=== PATIENT | male | born 1955 | race Caucasian/White ===

== ENCOUNTER 2020-02-11 12:01 | Observation (INO) | payer MEDICARE, MEDICAID ==
[~2020-02-11] VITALS: Ht 180.3 cm; Wt 100.0 kg
--- NOTE | 2020-02-11 12:38 | NUR ---
PT VERONICA CHAVARRIA FROM HOME. PT STATES CARDIAC CATH YESTERDAY IN [place], PT STATES NO INTERVENTION NEEDED. PT STATES THIS AM, PT HAD A SUDDEN ONSET OF DIZZINESS AND G/O WEAKNESS. 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 PT PLACED ON MONITORS, EKG COMPLETED. AWAITING ERMD ASSESSMENT.
[2020-02-11] MEDS ORDERED: DEXTROSE 50%, 50ML SYRINGE ONE (13:31)
--- NOTE | 2020-02-11 13:38 | NUR ---
PT UP TO RR, STEADY GAIT. PT BACK TO BED, REMAINS ON MONITORS, VSS. NO DISTRESS, CONT TO MONITOR.
[2020-02-11 13:49] LABS: BASOPHILS % (AUTO) 1 % (0-1); EOSINOPHILS # (AUTO) 0.17 x10^3/uL (0-0.4); EOSINOPHILS % (AUTO) 2 % (1-7); LYMPHOCYTES # (AUTO) 2.38 x10^3/uL (1-3.4); LYMPHOCYTES % (AUTO) 27 % (22-44); MD NO; MEAN CORPUSCULAR HEMOGLOBIN 31.6 pg (27.5-34.5); MEAN CORPUSCULAR HGB CONC 33.6 g/dL (33.2-36.2); MEAN CORPUSCULAR VOLUME 93.9 fL (81-97); MEAN PLATELET VOLUME 8.8 fL (7.4-10.4); MONOCYTES # (AUTO) 0.67 x10^3/uL (0.2-0.8); MONOCYTES % (AUTO) 8 % (2-9); NEUTROPHILS # (AUTO) 5.57 x10^3/uL (1.8-6.8); NEUTROPHILS % (AUTO) 63 % (42-75); PLATELET COUNT 189 x10^3/uL (130-400); RED BLOOD COUNT 5.24 x10^6/uL (4.38-5.82); RED CELL DISTRIBUTION WIDTH 13.1 % (9.4-14.8)
[2020-02-11 13:59] LABS: ANION GAP 7 mmol/L (5-15); CALCIUM 9.6 mg/dL (8.5-10.1); CHLORIDE 104 mmol/L (98-107)
[2020-02-11 14:06] LABS: CREATININE 1.19 mg/dL (0.7-1.3); TROPONIN I 0.065 ng/mL (0.000-0.045)
--- NOTE | 2020-02-11 15:27 | NUR ---
PT AWARE OF POC, TO BE [facility] ADMIT. PT REMAINS ON MONITORS, VSS. CONT TO MONITOR.
[2020-02-11] MEDS ORDERED: LORazepam 2 MG/ML, 1ML ONE (16:04)
[2020-02-11] MEDS ORDERED: PREG100C PO (16:15)
[2020-02-11] MEDS ORDERED: TERA1CAP3 PO (16:15)
[2020-02-11] MEDS ORDERED: METF500T17 PO (16:16)
[2020-02-11] MEDS ORDERED: ASPI81TA45 PO (16:16)
[2020-02-11] MEDS ORDERED: CHLO25TA PO (16:17)
[2020-02-11] MEDS ORDERED: OMEP-110 PO (16:18)
[2020-02-11] MEDS ORDERED: LORazepam 2 MG/ML, 1ML IVPush ONE (16:30)
--- NOTE | 2020-02-11 16:40 | NUR ---
PT HAS BEEN INCREASING ANGRY WITH STAFF, STATING HE'S "SICK OF BEING HERE." PT EDUCATED ON PLAN OF CARE, REMAINS ANGRY WITH STAFF. PT GIVEN PILLOW PER REQUEST. BREAK RN RECEIVED ORDER FOR ATIVAN, AND PT MEDICATED PER ORDERS. WILL RECHECK. CONT TO MONITOR.
--- NOTE | 2020-02-11 17:13 | NUR ---
REPOT GIVEN TO ALBINA PENNY.
--- NOTE | 2020-02-11 17:40 | NUR ---
PT TRANSFERED TO 526, PT HAS ALL OWN BELONGINGS UPON TRANSFER.
[2020-02-11] MEDS ORDERED: POLYETHYLENE GLYCOL 17 GM PACKET PO PRN (18:00)
[2020-02-11] MEDS ORDERED: hydrALAzine 20 MG/ML, 1ML IVPush PRN (18:00)
[2020-02-11] MEDS ORDERED: BISACODYL 10 MG SUPP PR PRN (18:00)
[2020-02-11] MEDS ORDERED: DOCUSATE 100 MG CAPSULE PO PRN (18:00)
[2020-02-11] MEDS ORDERED: ACETAMINOPHEN 325 MG TABLET PO PRN (18:00)
[2020-02-11 18:02] VITALS: BP 156/90
[2020-02-11 18:08] LABS: FREE T4 (FREE THYROXINE) 1.23 ng/dL (0.76-1.46)
[2020-02-11 19:03] VITALS: BP 147/88
[2020-02-11 21:28] LABS: TROPONIN I 0.053 ng/mL (0.000-0.045)
[2020-02-11] MEDS ORDERED: DIPHENHYDRAMINE 25 MG CAPSULE PO PRN (21:30)
[2020-02-11] MEDS: HEPARIN 5,000 UNITS/ML, 1ML SQ SCH (21:51)
[2020-02-12 00:52] LABS: TROPONIN I 0.052 ng/mL (0.000-0.045)
[2020-02-12 01:35] VITALS: BP 136/87
[2020-02-12 05:41] LABS: CHLORIDE 107 mmol/L (98-107)
[2020-02-12 05:51] LABS: BASOPHILS # (AUTO) 0.05 x10^3/uL (0-0.1); BASOPHILS % (AUTO) 1 % (0-1); EOSINOPHILS # (AUTO) 0.24 x10^3/uL (0-0.4); EOSINOPHILS % (AUTO) 4 % (1-7); LYMPHOCYTES # (AUTO) 2.11 x10^3/uL (1-3.4); LYMPHOCYTES % (AUTO) 34 % (22-44); MEAN CORPUSCULAR HEMOGLOBIN 31.4 pg (27.5-34.5); MEAN CORPUSCULAR HGB CONC 33.1 g/dL (33.2-36.2); MEAN CORPUSCULAR VOLUME 95.1 fL (81-97); MEAN PLATELET VOLUME 8.7 fL (7.4-10.4); MONOCYTES % (AUTO) 10 % (2-9); NEUTROPHILS # (AUTO) 3.14 x10^3/uL (1.8-6.8); NEUTROPHILS % (AUTO) 51 % (42-75); PLATELET COUNT 171 x10^3/uL (130-400); RED CELL DISTRIBUTION WIDTH 13.3 % (9.4-14.8)
[2020-02-12 05:58] LABS: ALANINE AMINOTRANSFERASE 33 U/L (12-78); ALBUMIN 3.7 g/dL (3.4-5.0); ALKALINE PHOSPHATASE 85 U/L (45-117); BILIRUBIN,TOTAL 1.1 mg/dL (0.2-1.0); CALCIUM 9.3 mg/dL (8.5-10.1); CHOL/HDL RATIO 4.3; CHOLESTEROL, TOTAL 172 mg/dL (140-239); CREATININE 1.03 mg/dL (0.7-1.3); HDL CHOL % 23 % (26-37); HDL CHOLESTEROL (DIRECT) 40 mg/dL (40-60); LDL CHOLESTEROL,CALCULATED 97 mg/dL (54-169); LDL/HDL RATIO 2.4 (0.5-3.0); TOTAL PROTEIN 7.3 g/dL (6.4-8.2); TRIGLYCERIDES 176 mg/dL (50-200); VLDL CHOLESTEROL 35 mg/dL (0-25)
[2020-02-12] MEDS: HEPARIN 5,000 UNITS/ML, 1ML SQ SCH (06:12)
[2020-02-12 06:22] LABS: MD NO
[2020-02-12 06:47] LABS: ANION GAP 8 mmol/L (5-15)
[2020-02-12 07:10] VITALS: BP 146/94
== END 2020-02-12 09:14 | disposition left against medical advice (07) ==
LOC: ED 12:35 → EDIP 15:08 → INTOOBSV 15:08 → 5SO 17:45
PROVIDERS: ADMIT Hospitalist; ATTEND Internal Medicine
DX: R53.1 Weakness (principal); R55 Syncope and collapse; E11.9 Type 2 diabetes mellitus without complications; I10 Essential (primary) hypertension; G89.29 Other chronic pain; I21.4 Non-ST elevation (NSTEMI) myocardial infarction; K21.9 Gastro-esophageal reflux disease without esophagitis; Z79.899 Other long term (current) drug therapy; Z79.82 Long term (current) use of aspirin; Z79.84 Long term (current) use of oral hypoglycemic drugs
CPT/HCPCS: 36415; 71045; 80048; 80053; 80061; 82040; 83036; 83735; 84439; 84443; 84484; 85025; 93005; 96372; 96374; 99285; G0378; J1644; J2060; Q0163